=== PATIENT | male | born 1980 | race Two or more races ===

== ENCOUNTER 2017-09-05 19:56 | Emergency (ER) | payer SELFPAY ==
[~2017-09-05] VITALS: Ht 170.2 cm; Wt 81.6 kg
[2017-09-05 20:12] VITALS: BP 165/73
[2017-09-05] MEDS ORDERED: IBUPROFEN 600 MG TAB PO ONE ×2 (20:35→20:45)
[2017-09-05] MEDS ORDERED: BACITRACIN TOP OINT 1 UD PKG TOP ONE (20:45)
== END 2017-09-06 00:23 ==
LOC: ER 19:56 → EDBD 19:56 → ER 21:30
DX: S80.812A Abrasion, left lower leg, initial encounter (principal); S40.812A Abrasion of left upper arm, initial encounter; S40.811A Abrasion of right upper arm, initial encounter; F15.10 Other stimulant abuse, uncomplicated; X58.XXXA Exposure to other specified factors, initial encounter; Y93.89 Activity, other specified; Y99.8 Other external cause status; Y92.89 Other specified places as the place of occurrence of the external cause